=== PATIENT | female | born 1980 | race Caucasian/White ===

== ENCOUNTER 2022-03-25 13:19 | Outpatient (REF) | payer OTHER, SELFPAY ==
[2022-03-25 14:53] LABS: Basophils Absolute Auto 0.03 K/uL (0.00-0.30); Basophils Percent Auto 0.5 % (0.0-3.0); Eosinophils Absolute Auto 0.13 K/uL (0.00-0.50); Eosinophils Percent Auto 2.1 % (0.0-7.0); Hematocrit 44.3 % (33.0-51.0); Hemoglobin* 14.1 gm/dL (12.0-16.0); Immature Granulocytes Abs Auto 0.01 K/uL (0.00-0.30); Immature Granulocytes Pct Auto 0.2 %; Lymphocytes Absolute Auto 2.67 K/uL (0.90-2.90); Lymphocytes Percent Auto 42.7 % (20-44); Mean Corpuscular HGB Conc 32 gm/dL (32-36); Mean Corpuscular Hemoglobin 28 pg (26-34); Mean Corpuscular Volume 88 fL (80-100); Monocytes Percent Auto 6.4 % (0.0-11.0); Neutrophils Absolute Auto 3.02 K/uL (1.7-7.0); Neutrophils Percent Auto 48.1 % (42.0-72.0); Platelet Count* 337 K/uL (140-440); RDW Coefficient of Variation % 13.1 % (11.5-15.5); Red Blood Count 5.01 m/uL (4.00-5.20); White Blood Count* 6.26 K/uL (4.50-11.00)
[2022-03-25 14:55] LABS: Slide Review Reflex No
[2022-03-25 15:30] LABS: Alanine Aminotransferase* 46 U/L (4-35); Aspartate Amino Transferase* 41 U/L (12-35)
[2022-03-29 09:42] LABS: Immunoglobulin A 79 mg/dL (68-408); Immunoglobulin G 313 mg/dL (768-1632); Immunoglobulin M 13 mg/dL (35-263)
== END 2022-03-25 13:20 | disposition home or self-care (01) ==
LOC: NPINS 13:19
PROVIDERS: PCP Nurse Practitioner Family
DX: G35 Multiple sclerosis (principal)
CPT/HCPCS: 82784; 84450; 84460; 85025; 86711

== ENCOUNTER 2022-04-12 14:50 | Outpatient (CLI) | payer OTHER, SELFPAY ==
--- NOTE | 2022-04-12 15:00 | CRLHL7_ITS ---
For Patients: As a result of the Century Cures Act, medical imaging exams and procedure reports are released immediately into your electronic medical record. You may view this report before your referring provider. If you have questions, please contact your health care provider. BILATERAL SCREENING MAMMOGRAM WITH COMPUTER-AIDED DETECTION AND TOMOSYNTHESIS TECHNIQUE: CC and MLO views were obtained. These mammographic images have been obtained using full-field digital technique. These mammographic images were interpreted with the benefit of computer-aided detection. Breast tomosynthesis was used in this interpretation. COMPARISON FILM: 08/24/19, 08/28/19. FINDINGS: There are scattered areas of fibroglandular density. IMPRESSION: There is no radiographic evidence for malignancy. ASSESSMENT: BI-RADS Category 2: Benign RECOMMENDATION: Routine screening mammogram in 1 year. A lay language report of this examination will be provided to the patient. ZAHEER MARISCAL M.D. Diagnostic Radiologist [email or web address] BRENDON/delvis Transcribed: 04/14/2022, 2:[address]/Dictated by: Zaheer Mariscal MD @ 04/14/2022 8:27:00 AM (Electronically Signed)
== END 2022-04-12 14:51 | disposition home or self-care (01) ==
LOC: MAMMO 14:50
PROVIDERS: PCP Nurse Practitioner Family; Visit Provider Nurse Practitioner Family
DX: Z12.31 Encounter for screening mammogram for malignant neoplasm of breast (principal)
CPT/HCPCS: 77063; 77067

== ENCOUNTER 2022-12-14 15:28 | Outpatient (CLI) | payer MEDICARE, SELFPAY ==
[2022-12-14 22:18] LABS: Trichomonas No Trichomonas Seen (None Seen); Yeast No Yeast Seen (None Seen)
[2022-12-14 22:19] LABS: Clue Cells <20% Clue Cells Seen (None Seen)
[2022-12-15 01:57] LABS: Chlamydia DNA Amplified* NOT DETECTED (No Detected); GC DNA Amplified* NOT DETECTED (No Detected)
== END 2022-12-14 15:29 | disposition home or self-care (01) ==
PROVIDERS: PCP Nurse Practitioner Family; Visit Provider Nurse Practitioner Family
DX: N89.8 Other specified noninflammatory disorders of vagina (principal); R35.0 Frequency of micturition
CPT/HCPCS: 86592; 86703; 86803; 87086; 87186; 87210; 87491; 87591

== ENCOUNTER 2023-02-07 10:51 | Outpatient (REF) | payer OTHER, SELFPAY | END 2023-02-07 10:52 | disposition home or self-care (01) | LOC: NFLDREF 10:51 | PROVIDERS: PCP Nurse Practitioner Family; Referring Provider Nurse Practitioner Family; Visit Provider Physician Assistant | DX: R30.0 Dysuria (principal); N39.0 Urinary tract infection, site not specified; R10.9 Unspecified abdominal pain | CPT/HCPCS: 87086; 87186 ==

== ENCOUNTER 2024-04-23 11:21 | Outpatient (CLI) | payer MEDICARE, SELFPAY | END 2024-04-23 11:22 | disposition home or self-care (01) | PROVIDERS: PCP Nurse Practitioner Family; Visit Provider Nurse Practitioner Family | DX: R53.82 Chronic fatigue, unspecified (principal); R00.2 Palpitations; R10.9 Unspecified abdominal pain; F41.9 Anxiety disorder, unspecified | CPT/HCPCS: 80053; 84443; 85025 ==

== ENCOUNTER 2024-05-24 09:19 | Outpatient (CLI) | payer MEDICARE, SELFPAY ==
--- NOTE | 2024-05-24 10:25 | P.ANES_ITS ---
Anesthesia Charges Start Date/Time Anesthesia Start Date: 05/24/24 Anesthesia Start Time: 10:00 Stop Date/Time Anesthesia Stop Date: 05/24/24 Anesthesia Stop Time: 10:25 Coding CPT Codes CPT Codes: ANES LWR INTST SCR COLSC - 01549 ([id number]) P2 - PATIENT W/MILD SYST DISEASE, QZ - INSULATION TECHNICIAN SVC W/O TECHNICAL SALES ADVISOR BY
--- NOTE | 2024-05-24 10:25 | W.ANESCHARGE ---
Anesthesia Charges Start Date/Time Anesthesia Start Date: 05/24/24 Anesthesia Start Time: 10:00 Stop Date/Time Anesthesia Stop Date: 05/24/24 Anesthesia Stop Time: 10:25 Coding CPT Codes CPT Codes: ANES LWR INTST SCR COLSC - 89143 ([id number]) P2 - PATIENT W/MILD SYST DISEASE, QZ - CHECKROOM ATTENDANT SVC W/O ASPHALT SCREED OPERATOR BY
== END 2024-05-24 09:20 | disposition home or self-care (01) ==
LOC: OP CLINIC 09:21
PROVIDERS: PCP Nurse Practitioner Family; Visit Provider Surgery
DX: Z12.11 Encounter for screening for malignant neoplasm of colon (principal); Z86.0100 Personal history of colon polyps, unspecified
CPT/HCPCS: 00812; 45378; J2250; J2704

== ENCOUNTER 2024-07-09 11:22 | Outpatient (CLI) | payer MEDICARE, SELFPAY ==
--- NOTE | 2024-07-09 11:30 | CRLHL7_ITS ---
For Patients: As a result of the Century Cures Act, medical imaging exams and procedure reports are released immediately into your electronic medical record. You may view this report before your referring provider. If you have questions, please contact your health care provider. INDICATION: BILATERAL SCREENING MAMMOGRAM, ASYMPTOMATIC 43 Y/O FEMALE COMPARISON: 04/12/2022, 08/24/2019 TECHNIQUE: Digital mammogram in CC and MLO projections including computer-aided detection (CAD) and tomosynthesis. BREAST COMPOSITION: The breasts are almost entirely fatty. FINDINGS: No suspicious findings. ASSESSMENT: BI-RADS 1 Negative RECOMMENDATION: Annual screening mammogram. A lay language report of this examination will be provided to the patient. Dictated by: Zaheer Manzo MD @ 07/09/2024 11:55:19 (Electronically Signed)
== END 2024-07-09 11:23 | disposition home or self-care (01) ==
LOC: MAMMO 11:22
PROVIDERS: PCP Nurse Practitioner Family; Visit Provider Nurse Practitioner Family
DX: Z12.31 Encounter for screening mammogram for malignant neoplasm of breast (principal)
CPT/HCPCS: 77063; 77067

== ENCOUNTER 2024-11-26 09:15 | Outpatient (CLI) | payer MEDICARE, SELFPAY ==
--- NOTE | 2024-11-26 09:15 | CRLHL7_ITS ---
For Patients: As a result of the Century Cures Act, medical imaging exams and procedure reports are released immediately into your electronic medical record. You may view this report before your referring provider. If you have questions, please contact your health care provider. INDICATION: Multiple sclerosis. COMPARISON: 11/02/2013 TECHNIQUE: Multiplanar T1, T2, FLAIR and diffusion-weighted imaging. Post gadolinium T1 weighted sequences. Gadolinium 13 cc IV FINDINGS: Compared to the previous exam, again seen are multiple T2/FLAIR signal hyperintense lesions of the periventricular, septal morel low also, and juxta cortical white matter of both supra hemispheres compatible with chronic demyelinating plaques. A number of these lesions have decreased in size and conspicuity from the previous Jerry. However, there are no new discrete white-matter lesions. Stable mild T1 hyperintense lesion load. No corresponding enhancement to suggest active demyelination. No significant cerebral volume loss or atrophy. No intracranial hemorrhage. No abnormal ventricular dilatation. Intracranial vascular flow voids are preserved. No mass effect or midline shift. No restricted diffusion to suggest acute ischemia. Bilateral orbits are unremarkable. Normal appearing sella. Visualized paranasal sinuses and mastoid air cells are unremarkable. IMPRESSION: 1. Stable mild supratentorial T2 hyperintense white matter lesions compatible with chronic demyelinating plaques. 2. No new discrete white matter lesions. Total number white-matter lesions is greater than 10. 3. Stable mild T1 hypointense lesion load no acute intracranial abnormality. No corresponding enhancement to suggest active demyelination 4. No significant cerebral volume loss or atrophy. 5. No acute intracranial abnormality Dictated by Mitul Sutton MD @ 11/26/2024 12:54:36 PM (Electronically Signed)
--- NOTE | 2024-11-26 10:15 | CRLHL7_ITS ---
For Patients: As a result of the Century Cures Act, medical imaging exams and procedure reports are released immediately into your electronic medical record. You may view this report before your referring provider. If you have questions, please contact your health care provider. INDICATION: Neck pain. COMPARISON: 11/02/2013. TECHNIQUE: Sagittal T1, T2, and STIR sequences. Axial T2/gradient sequences. Post gadolinium T1 weighted sequences. Gadolinium 13 cc IV. FINDINGS: Normal vertebral body facet alignment. No fractures. No vertebral body loss of height. No spondylolisthesis. No ligamentous injury. Normal marrow signal. No suspicious osseous lesions. Normal cord signal. No intradural mass or lesion. No abnormal enhancement. C1-2: No spinal canal narrowing. C2-3: No spinal canal or neural foraminal narrowing. C3-4: Disk degeneration. No narrowing of the spinal canal. No neural foraminal narrowing. C4-5: No spinal canal neural foraminal narrowing. C5-6: Mild disc degeneration with posterior disc bulge or disc osteophyte complex. Mild narrowing of spinal canal. No neural foraminal narrowing. C6-7: No spinal canal neural foraminal narrowing. C7-T1: No spinal canal or neural foraminal narrowing. No spinal canal neural foraminal narrowing in the visualized upper thoracic spine. IMPRESSION: 1. No acute intracranial abnormality 2. Normal alignment. No fractures 3. Normal cord signal. 4. No abnormal enhancement 5. At C5-6 mild narrowing of the spinal canal. 6. No spinal canal or neural foraminal narrowing at the remaining levels Dictated by Mitul Sutton MD @ 11/26/2024 12:22:25 PM (Electronically Signed)
== END 2024-11-26 09:16 | disposition home or self-care (01) ==
LOC: MRI 09:15
PROVIDERS: PCP Nurse Practitioner Family; Visit Provider Nurse Practitioner Family
DX: G35 Multiple sclerosis (principal); G93.9 Disorder of brain, unspecified; M50.222 Other cervical disc displacement at C5-C6 level; M25.512 Pain in left shoulder
CPT/HCPCS: 70553; 72156; A9575

== ENCOUNTER 2024-12-20 17:06 | Outpatient (CLI) | payer MEDICARE, SELFPAY ==
--- NOTE | 2024-12-20 17:30 | MR_ITS ---
[address] [address] Phone:?[phone] Fax:?[phone] Referring Physician Information: Laurie Moran [address] [facility] [address] Phone:?[phone] Fax:?[phone] Patient:?Heather Rosario D.O.B:?1980 Sex:?Female Phone:?[phone] [facility] MRN:?[id number] Exam Date:?12/20/2024 EXAM: MRI of the LEFT SHOULDER WITHOUT CONTRAST CLINICAL HISTORY: Ongoing left shoulder pain. Evaluate for rotator cuff pathology. COMPARISONS: None available. TECHNICAL: MRI sequences of the left shoulder: Axials: PD, T2 Coronals: PD, STIR, T2 Sagittals: PD, T2 SEDATION: None CONTRAST: None FINDINGS: Bones: No fracture or suspicious bone marrow signal abnormality. Coracoacromial arch: Acromion: No os acromiale. Type I-II acromion. Acromioclavicular joint: No acute injury, arthropathy, or inferior hypertrophy. Coracoclavicular ligament: The coracoclavicular ligament is intact. Rotator cuff muscles/tendons: Supraspinatus: Minimal tendinopathy. No muscular atrophy. Infraspinatus: The infraspinatus tendon and muscle are intact. Teres minor: The teres minor tendon and muscle are intact. Subscapularis: The subscapularis tendon and muscle are intact. Labrum and glenohumeral joint: No evidence of labral tear although evaluation is suboptimal because of nonarthrogram technique. Physiologic amount of joint fluid. No discrete chondral defect or subchondral bone marrow edema/cystic change is seen. No convincing evidence of capsular edema or thickening although evaluation is suboptimal because of lack of joint distention. Proximal biceps tendon, long head and short heads: The long and short heads of the proximal biceps tendon are intact. Bursae: Subacromial/subdeltoid: Slight bursitis. Subcoracoid: No convincing subcoracoid bursal thickening/bursitis. IMPRESSION: 1. Minimal supraspinatus tendinopathy. 2. Slight subacromial/subdeltoid bursitis. 3. No osseous pathology, rotator cuff tendon tear, rotator cuff muscular atrophy, or biceps pathology of the left shoulder. RCB Electronically signed on 12/21/2024 9:27:00 AM by Neri Sampson M.D.
== END 2024-12-20 17:07 | disposition home or self-care (01) ==
LOC: MRI 17:06
PROVIDERS: PCP Nurse Practitioner Family; Visit Provider Physician Assistant
DX: M25.512 Pain in left shoulder (principal); M75.52 Bursitis of left shoulder; G89.29 Other chronic pain
CPT/HCPCS: 73221